=== PATIENT | male | born 1970 | race Caucasian/White ===

== ENCOUNTER → 2024-01-25 11:25 | Outpatient (REF) | payer OTHER, SELFPAY | LOC: DHCBC/DCA 11:25 | PROVIDERS: ATTENDING PHYSICIAN Internal Medicine Cardiovascular Disease; FAMILY PHYSICIAN Internal Medicine | DX: I25.10 Atherosclerotic heart disease of native coronary artery without angina pectoris (principal); I10 Essential (primary) hypertension; E78.5 Hyperlipidemia, unspecified | CPT/HCPCS: 78452; 93017; A9500 ==

== ENCOUNTER 2024-02-04 10:59 | Day surgery (SDC) | payer OTHER, SELFPAY ==
[2024-02-04] VITALS (13 sets, daily range): BP systolic 121–175; BP diastolic 53–92; BMI 32.6
[2024-02-04] MEDS: NSS 271 ML IV (11:51)
--- NOTE | 2024-02-04 14:16 | ITS.CL.CATH ---
[facility] - Catheterization
Cardiac Catheterization
Procedure Report:
CARDIAC CATHETERIZATION REPORT
Date of Procedure: 02/04/2024
Referring: Jarred Griffith MD
Indication: Anginal type chest discomfort with ischemic stress test
�
HEMODYNAMIC DATA
AO: 115/69
LV: 115/20
�
LEFT VENTRICULOGRAPHY: Borderline anterolateral hypokinesis with EF 53%
�
CORONARY ANGIOGRAPHY
Dominance: Right
Left Main: Normal
LAD: Widely patent proximal LAD stent with otherwise trivial luminal irregularities. D1 is small. D2 is large with 20% ostial stenosis.
Circumflex: Mild luminal irregularities
RCA: Mild luminal irregularities
�
Closure Device: None-the procedure was performed via the right radial artery. Of note, there was some resistance to catheter advancement at the junction of the radial and brachial artery. Neither a 6 [place] pigtail nor a 5 [place] JR4 could be
advanced through this zone. The fluoroscopy showed that it did not appear to be a radial loop. With significant intra-arterial nitroglycerin we were able to get a 4 [place] JR4 through without resistance and subsequently a 4 [place] JL 4 and 4
[place] pigtail. It may be best to use an alternative approach for future procedures.
�
Radiation (mGy): 537
DAP (cm2.Gy): 48
Fluoroscopy time: 4.3 minutes
�
CONCLUSIONS
1:�Borderline anterolateral hypokinesis with EF 53%
2:�No significant residual CAD with widely patent proximal LAD stent placed in 2011
3. Continue medical therapy
�
�
Copy to: Jarred Griffith MD, Amor Danielson MD ([place], [place])
�
Jarred Griffith MD, [facility], [facility]
== END 2024-02-04 17:15 | disposition home or self-care (01) ==
LOC: CATH 10:59
PROVIDERS: ATTENDING PHYSICIAN Internal Medicine Cardiovascular Disease; FAMILY PHYSICIAN Internal Medicine
DX: I25.10 Atherosclerotic heart disease of native coronary artery without angina pectoris (principal); R07.89 Other chest pain; I45.10 Unspecified right bundle-branch block; Z95.5 Presence of coronary angioplasty implant and graft; I10 Essential (primary) hypertension; E78.5 Hyperlipidemia, unspecified; Z79.82 Long term (current) use of aspirin
CPT/HCPCS: 93005; 93458; C1894; Q9967